=== PATIENT | female | born 1970 | race Caucasian/White ===

== ENCOUNTER → 2016-11-01 | Outpatient (CLI) | payer BC ==
--- NOTE | 2016-11-01 09:35 | MM ---
Reason for exam: additional evaluation requested from prior study. Last mammogram was performed 1 year and 1 month ago. History: Family history of breast cancer in maternal aunt at age 50. 2 benign cyst aspirations of the right breast, October 07, 2016. Benign US RT VAD breast biopsy of the right breast, March 22, 2011. Physical Findings: Nurse Summary: A 2 x 2/1.5cm nodule in the right breast upper outer quadrant at 12 o'clock, and a 2 x 3/1 x 1.5cm nodule in the left breast upper outer quadrant at 10 o'clock (nurse ts). MG 3D Diag Mammo W/Cad RACHEAL Bilateral CC and MLO view(s) were taken. Prior study comparison: September 19, 2015, bilateral MG 3d screening mammo w/cad. August 05, 2014, bilateral MG diagnostic mammo w CAD RACHEAL. The breast tissue is extremely dense which could obscure a lesion on mammography. Benign calcifications. There is chronic nodularity bilaterally. These results were verbally communicated with the patient and result sheet given to the patient on 11/01/16. ASSESSMENT: Incomplete: need additional imaging evaluation, BI-RAD 0 RECOMMENDATION: Ultrasound of both breasts. Manage patient on a clinical basis.
--- NOTE | 2016-11-01 09:57 | USB ---
Reason for exam: clinical finding. History: Family history of breast cancer in maternal aunt at age 50. 2 benign cyst aspirations of the right breast, October 07, 2016. Benign US RT VAD breast biopsy of the right breast, March 22, 2011. US Breast BILAT Right breast ultrasound includes all four quadrants, the retroareolar region and axilla. Finding demonstrate a 47 x 17 x 53mm oval, cystic lesion at 7 o'clock, a 7mm cystic lesion at 7 o'clock, and a 13 x 11 x 12mm oval, cystic lesion at BB at 10 o'clock. Left breast ultrasound includes all four quadrants, the retroareolar region and axilla. Finding demonstrate a 42 x 18 x 28mm cystic lesion at 12 o'clock, a 7mm cystic lesion at BB at 1 o'clock and a 25 x 12 x 23mm cystic lesion at 10 o'clock. Multi cystic breasts. Largest bilaterally measured. These results were verbally communicated with the patient and result sheet given to the patient on 11/01/16. ASSESSMENT: Benign, BI-RAD 2 RECOMMENDATION: Routine screening mammogram of both breasts in 1 year. Manage patient on a clinical basis.
== END | disposition home or self-care (01) ==
LOC: RADMAMWWP 08:10
PROVIDERS: ATTEND Surgery
DX: N60.09 Solitary cyst of unspecified breast (principal)
CPT/HCPCS: 76641; G0204; G0279

== ENCOUNTER → 2018-01-23 | Outpatient (CLI) | payer BC ==
--- NOTE | 2018-01-25 11:06 | MM ---
Reason for exam: screening (asymptomatic). Last mammogram was performed 1 year and 3 months ago. History: Family history of breast cancer in maternal aunt at age 50. 2 benign cyst aspirations of the right breast, October 07, 2016. Benign US RT VAD breast biopsy of the right breast, March 22, 2011. Physical Findings: A clinical breast exam by your physician is recommended on an annual basis and results should be correlated with mammographic findings. MG 3D Screening Mammo W/Cad Bilateral CC and MLO view(s) were taken. Prior study comparison: November 01, 2016, bilateral MG 3d diag mammo w/cad RACHEAL. September 19, 2015, bilateral MG 3d screening mammo w/cad. The breast tissue is extremely dense which could obscure a lesion on mammography. Previous mammotome biopsy in the right breast. Two large circumscribed masses redemonstrated on the right and at least one on the left. These have fluctuated in size over time. Benign cysts are suggested. Consider supplementary screening with ultrasound given breast density and chronic underlying masses. ASSESSMENT: Benign, BI-RAD 2 RECOMMENDATION: Routine screening mammogram of both breasts in 1 year.
== END | disposition home or self-care (01) ==
LOC: RADMAMWWP 13:14
PROVIDERS: ATTEND Obstetrics & Gynecology
DX: Z12.31 Encounter for screening mammogram for malignant neoplasm of breast (principal); Z80.3 Family history of malignant neoplasm of breast
CPT/HCPCS: 77063; 77067

== ENCOUNTER → 2019-02-19 | Outpatient (CLI) | payer BC ==
--- NOTE | 2019-02-19 11:50 | MM ---
Reason for exam: additional evaluation requested from prior study. Last mammogram was performed 1 year and 1 month ago. History: Family history of breast cancer in maternal aunt at age 50. Cyst aspiration of the right breast, July 2018. 2 benign cyst aspirations of the right breast, October 07, 2016. Benign US RT VAD breast biopsy of the right breast, March 22, 2011. Physical Findings: Nurse Summary: 2.5cm nodule in the right breast at 12 o'clock, a 1.5cm nodule in the right breast at 8 o'clock, a 1cm nodule in the left breast at 10 o'clock, a 2.5cm nodule in the left breast at 1 o'clock and a 1.5cm nodule in the left breast at 3 o'clock (nurse dw). MG 3D Diag Mammo W/Cad RACHEAL Bilateral CC and MLO view(s) were taken. Prior study comparison: January 23, 2018, bilateral MG 3d screening mammo w/cad. November 01, 2016, bilateral MG 3d diag mammo w/cad RACHEAL. The breast tissue is extremely dense which could obscure a lesion on mammography. There are benign appearing round oval, circumscribed bilateral masses as seen on ultrasound. There additionally however is a 1.8cm areas of architectural distortion of the central outer right breast, inferior on lateral, CC 25/70 and MLO 20/67. These results were verbally communicated with the patient and result sheet given to the patient on 02/19/19. ASSESSMENT: Suspicious, BI-RAD 4 RECOMMENDATION: Stereotactic core biopsy of the right breast. (3D)
--- NOTE | 2019-02-19 11:55 | USB ---
Reason for exam: additional evaluation requested from prior study. History: Family history of breast cancer in maternal aunt at age 50. Cyst aspiration of the right breast, July 2018. 2 benign cyst aspirations of the right breast, October 07, 2016. Benign US RT VAD breast biopsy of the right breast, March 22, 2011. US Breast BILAT Right complete breast ultrasound includes all four quadrants, the retroareolar region and axilla. Finding demonstrates a 1.4 x 0.8 x 1.0cm oval, cystic lesion at 8 o'clock, a 0.5 x 0.5 x 0.6cm oval, cystic lesion at 10 o'clock, a 0.7 x 0.8 x 0.9cm oval, cystic lesion at 10 o'clock and a 1.8 x 1.2 x 1.9cm oval, cystic lesion at 10 o'clock. Benign. Left complete breast ultrasound includes all four quadrants, the retroareolar region and axilla. Finding demonstrates a 2.3 x 1.5 x 2.0cm oval, mixed lesion at 12 o'clock, 6 month follow up ultrasound recommended and a 2.6 x 1.7 x 1.7cm oval, cystic lesion at 12 o'clock, a 1.3 x 0.6 x 1.1cm oval, questionable solid lesion versus lobe at 10 o'clock, 6 month follow up recommended. Very dense tissue throughout. These results were verbally communicated with the patient and result sheet given to the patient on 02/19/19. ASSESSMENT: Suspicious, BI-RAD 4 RECOMMENDATION: Stereotactic core biopsy of the right breast. (3D) Ultrasound of the left breast in 6 months. (upper inner quadrant) Called Dr. Blankenship's office with mammographic findings. PRELIMINARY REPORT CALLED AND FAXED TO DR. BLANKENSHIP ON 02/19/19.
== END | disposition home or self-care (01) ==
LOC: RADMAMWWP 09:22
PROVIDERS: ATTEND Obstetrics & Gynecology
DX: N60.01 Solitary cyst of right breast (principal); N60.02 Solitary cyst of left breast; R92.8 Other abnormal and inconclusive findings on diagnostic imaging of breast
CPT/HCPCS: 77062; 77066

== ENCOUNTER 2019-06-15 11:34 | Day surgery (SDC) | payer BC ==
[2019-06-13 10:24] VITALS: BMI 23.0
[~2019-06-15 11:34] MED LIST: DEXAMETHASONE SOD PHOSPHATE 10 MG/ML 1 ML VIAL IV ONE; LACTATED RINGERS 1,000 ML IV SCH; LIDOCAINE 1% 20 ML VIAL (10MG/ML) FOR IV START INTRADERMA PRN; ONDANSETRON 4 MG/2 ML VIAL IVP ONE; SCOPOLAMINE 1.5MG/72HR PATCH TRANSDERM ONE
[2019-06-15 13:28] VITALS: TEMP 99
[2019-06-15] MEDS ORDERED: LIDOCAINE 1% INJ 10MG/ML (20 ML MDV) ONE (13:31)
[2019-06-15] MEDS ORDERED: PROPOFOL 10 MG/ML 20 ML VIAL IV ONE (13:31)
--- NOTE | 2019-06-15 13:52 | P.PCN ---
Date of Procedure: 06/15/19 Procedure(s) Performed: BRIEF HISTORY: Patient is a 49-year-old pleasant white female scheduled for an elective colonoscopy as a part of screening for colorectal neoplasia. PROCEDURE PERFORMED: Colonoscopy with snare polypectomy. PREOPERATIVE DIAGNOSIS: Screening for colon cancer. IV sedation per Anesthesia. PROCEDURE: After informed consent was obtained, the patient, was brought into the endoscopy unit. IV sedation was administered by Anesthesia under continuous monitoring. Digital rectal examination was normal. Initially the Olympus CF-160 flexible video colonoscope was then inserted in the rectum, gradually advanced into the cecum without any difficulty. Careful examination was performed as the scope was gradually being withdrawn. Ileocecal valve and the appendiceal orifice were visualized and appeared normal. Prep was excellent. Mucosa of the cecum, ascending colon, transverse colon, descending colon,was normal. The sigmoid colon there was a 7-8 mm polyp that was removed by snare polypectomy rest of the sigmoid colon, and rectum appeared normal. Retroflexion was performed in the rectum and no lesions were seen. The patient tolerated the procedure well. IMPRESSION: 7 mm sigmpoid colon polyp s/p snare polypectomy Rest of the colon normal. RECOMMENDATIONS: Findings of this examination were discussed with the patient well as her family. She was advised to follow with the biopsy results. If the biopsy shows an adenoma she can have a repeat colonoscopy in 5 years.
[2019-06-15 13:55] VITALS: RESP 16
[2019-06-15 14:17] VITALS: BP 125/79; PULSE 61
== END 2019-06-15 14:29 | disposition home or self-care (01) ==
LOC: ORWHC2ENDO 11:34
PROVIDERS: ATTEND Internal Medicine Gastroenterology
DX: Z12.11 Encounter for screening for malignant neoplasm of colon (principal); D12.5 Benign neoplasm of sigmoid colon
CPT/HCPCS: 81025; 88305; 45385; J2001; J2704

== ENCOUNTER → 2020-06-27 | Outpatient (CLI) | payer BC ==
[2020-06-27 10:49] LABS: Basophils % (A) 1 %; Eosinophils # (A) 0.3 k/uL (0-0.7); Eosinophils % (A) 9 %; HCT 41.8 % (34.0-46.0); HGB 13.8 gm/dL (11.4-16.0); Lymphocytes % (A) 28 %; MCH 29.4 pg (25.0-35.0); MCHC 32.9 g/dL (31.0-37.0); MCV 89.2 fL (80.0-100.0); Mean Platelet Volume 8.5; Monocytes # (A) 0.3 k/uL (0-1.0); Monocytes % (A) 7 %; Neutrophils # (A) 1.8 k/uL (1.3-7.7); Neutrophils % (A) 52 %; Platelet Count 191 k/uL (150-450); RBC 4.69 m/uL (3.80-5.40); WBC 3.5 k/uL (3.8-10.6)
== END | disposition home or self-care (01) ==
LOC: LABPAT 09:59
PROVIDERS: ATTEND Obstetrics & Gynecology
DX: Z01.818 Encounter for other preprocedural examination (principal); N84.0 Polyp of corpus uteri
CPT/HCPCS: 85025

== ENCOUNTER → 2020-06-27 | Outpatient (CLI) | payer BC ==
[2020-06-27 15:49] LABS: African American GFR (CKD) 85.8 (60.0-200.0); Albumin 4.6 g/dL (3.80-4.90); Anion Gap 6.6 mmol/L (4.00-12.00); BUN/Creat Ratio 13.33 Ratio (12.00-20.00); Calcium 8.8 mg/dL (8.7-10.3); Carbon Dioxide 26.4 mmol/L (21.6-31.8); Chol/HDL Ratio 3.59; Globulin 2.3 g/dL (1.6-3.3); Potassium 4.2 mmol/L (3.5-5.5); Total Bilirubin 0.6 mg/dL (0.3-1.2); Total Protein 6.9 g/dL (6.2-8.2)
[2020-06-27 19:03] LABS: Hemoglobin A1C 5.4 % (4.0-6.0)
== END | disposition home or self-care (01) ==
LOC: LABWHC1 10:01
PROVIDERS: ATTEND Family Medicine
DX: Z00.00 Encounter for general adult medical examination without abnormal findings (principal)
CPT/HCPCS: 36415; 80053; 80061; 83036; 84443

== ENCOUNTER 2020-07-07 09:19 | Day surgery (SDC) | payer BC ==
--- NOTE | 2020-07-01 17:05 | HP ---
HISTORY AND PHYSICAL DATE OF SURGERY: 07/07/2020 This is a 50-year-old female who presents with a history of sonographic evidence of two endometrial polyps as well as an endocervical polyp. In addition, there is asymmetric thickening of the endometrial cavity. This was done in response to abnormal uterine bleeding. I have discussed with the patient the recommendation of hysteroscopy, D and C, and polypectomies as an outpatient. Information has all been reviewed, including risks and benefits of procedure and anesthesia. All questions answered. PAST MEDICAL HISTORY: Significant for benign heart murmur, ulcer disease, and history of abnormal Pap smear in the past. PAST SURGICAL HISTORY: Breast biopsies, cholecystectomy, colposcopy, cryotherapy, foot surgery, partial thyroidectomy, sinus surgery, and stereotactic core biopsy of the breast. CURRENT MEDICATIONS: Eye drops daily. ALLERGIES: ALLERGIES include AUGMENTIN, to which reports diarrhea. FAMILY HISTORY: Significant for CVA, breast cysts, breast cancer, GERD, stroke. SUPERINTENDENT MAINTENANCE HISTORY: The patient is 1 para 1 with one spontaneous vaginal delivery in 1996, a 6- pound 11-ounce male infant. SOCIAL HISTORY: Patient is an rn production. She is a nonsmoker. She is . She denies alcohol or drug use. PHYSICAL EXAMINATION: Patient is 5 feet 4 inches, 125 pounds, BMI 21, blood pressure 130/76. The general physical exam is within normal limits. HEENT exam reveals no thyromegaly, no cervical lymphadenopathy. CHEST: Clear to auscultation in all morrow anteriorly and posteriorly. Cardiac exam reveals regular rate and rhythm with no murmur, click or rub. Breasts are bilaterally symmetric. No nipple discharge, axillary adenopathy, discernible lesions or masses. ABDOMEN: Soft and nontender. Active bowel sounds. No CVA tenderness. On pelvic examination, cervix is multiparous, uterus is small, anteverted, anteflexed. Adnexa are negative bilaterally. IMPRESSION: Abnormal uterine bleeding with sonographic evidence of multiple endometrial as well as endocervical polyps. Presenting for hysteroscopy, polypectomy, dilatation and curettage. PLAN: We will proceed with surgery as above. All questions answered. The ACOG pamphlet on this procedure has been given to the patient, has been reviewed and questions answered. She understands the risk of bleeding, infection, perforation or damage to bowel, bladder, ureters or indeed any pelvic or abdominal organs. This surgery is scheduled for 07/07/2020 at [facility]. MMODL / IJN: [id number] /
[2020-07-04 09:18] VITALS: BMI 21.4
[~2020-07-07 09:19] MED LIST changes: -DEXAMETHASONE SOD PHOSPHATE 10 MG/ML 1 ML VIAL IV ONE; +DEXAMETHASONE SOD PHOSPHATE 4 MG/ML 1 ML VIAL IV ONE; +HYDROmorphone 0.5 MG/0.5 ML SYRINGE IVP PRN; +LIDOCAINE 1% (10MG/ML) FOR IV START INTRADERMA PRN; -LIDOCAINE 1% 20 ML VIAL (10MG/ML) FOR IV START INTRADERMA PRN; +Pre Op ABX Message 1 EACH MISC MISCELLANE ONE; -SCOPOLAMINE 1.5MG/72HR PATCH TRANSDERM ONE
[2020-07-07] MEDS ORDERED: LIDOCAINE 1% INJ 10MG/ML (20 ML MDV) ONE (10:36)
[2020-07-07] MEDS ORDERED: PROPOFOL 10 MG/ML 20 ML VIAL IV ONE (10:36)
[2020-07-07] MEDS ORDERED: KETOROLAC 15 MG/ML 1 ML VIAL ONE (10:36)
[2020-07-07] MEDS ORDERED: fentaNYL (PF) 50 MCG/ML 2 ML AMP ONE (10:36)
[2020-07-07] MEDS ORDERED: MIDAZOLAM 2 MG/2 ML VIAL ONE (10:36)
--- NOTE | 2020-07-07 11:14 | P.OP ---
Date of Procedure: 07/07/20 Preoperative Diagnosis: Endometrial and endocervical polyps Postoperative Diagnosis: Same Procedure(s) Performed: Hysteroscopy, polypectomy, D&C Anesthesia: LEWISA Surgeon: Lyubov Blankenship Estimated Blood Loss (ml): 20 IV fluids (ml): 400 Urine output (ml): 50 Pathology: other (Endometrial and endocervical curettings and polyps) Description of Procedure: Patient is brought to the operating room where a general anesthetic is administered without difficulty. She's placed in the dorsal lithotomy position. The appropriate timeout is performed to assure proper patient and procedural identification. Antibiotics are not deemed necessary. Urine hCG is negative. Examination under anesthesia reveals a small anteverted anteflexed uterus. Negative adnexa. Bladder is drained for approximately 50 mL of clear yellow urine. Weighted speculum was placed into the vagina and the anterior lip of the cervix is gently grasped with a double-tooth tenaculum. Uterus sounds to a depth of 9 cm in the anteverted position. The cervix is gently and systematically dilated using Hanks dilators. The hysteroscope was then placed and the cavity is distended with sterile saline. Small endometrial polyps are identified, no obvious fibroids or septa. Hysteroscope was removed. Medium sharp curette is used in the entire cavity is curettaged. Polyp forceps are also introduced and small polypoid tissue is removed and sent to pathology. Hysteroscope was once again introduced and the cavity and cervix both appear to be negative. All sponge needle and enhancement counts are correct. Cervical lip is clean and dry. Toradol is given prior to leaving the operative suite. Patient is brought to the recovery room in very good condition with stable vital signs including blood pressure 98/52, pulse 57, 97% O2 saturation. Patient will follow-up with me in the office in 2 weeks.
[2020-07-07 11:29] VITALS: RESP 16; TEMP 97.9
[2020-07-07 12:27] VITALS: BP 125/64; PULSE 59
== END 2020-07-07 12:49 | disposition home or self-care (01) ==
LOC: OR 09:19
PROVIDERS: ATTEND Obstetrics & Gynecology
DX: N84.0 Polyp of corpus uteri (principal); N84.1 Polyp of cervix uteri; R01.1 Cardiac murmur, unspecified; Z90.49 Acquired absence of other specified parts of digestive tract; Z98.890 Other specified postprocedural states; E89.0 Postprocedural hypothyroidism; Z82.3 Family history of stroke; Z80.3 Family history of malignant neoplasm of breast; Z83.79 Family history of other diseases of the digestive system; Z79.899 Other long term (current) drug therapy; Z88.0 Allergy status to penicillin
CPT/HCPCS: 81025; 88305; 58558; J2250; J1100; J2405; J2001; J3010; J1885; J2704

== ENCOUNTER → 2021-10-06 | Outpatient (CLI) | payer BC ==
[2021-10-06 14:59] LABS: HCT 38.8 % (37.2-46.3); HGB 11.5 g/dL (12.0-15.0); MCH 24.9 pg (27.0-32.0); MCHC 29.6 g/dL (32.0-37.0); Mean Platelet Volume 12.1 fL (9.5-12.2); NRBC Per 100 WBC 0 /100 WBCS (0.0-0.0); Platelet Count 249 X 10*3/uL (140-440); RBC 4.62 X 10*6/uL (4.10-5.20); RDW 16.3 % (11.5-14.5); WBC 3.47 X 10*3/uL (4.50-10.00)
[2021-10-06 15:52] LABS: African American GFR (CKD) 98.2 (60.0-200.0); Anion Gap 15.1 mmol/L (10.00-18.00); Blood Urea Nitrogen 9.6 mg/dL (9.0-27.0); Carbon Dioxide 20.9 mmol/L (20.0-27.5); Magnesium 2.3 mg/dL (1.5-2.4); Non-African American GFR(CKD) 84.8 (60.0-200.0); Potassium 4.2 mmol/L (3.5-5.5)
== END | disposition home or self-care (01) ==
LOC: LABPAT 07:58
PROVIDERS: ATTEND Obstetrics & Gynecology
DX: Z01.812 Encounter for preprocedural laboratory examination (principal); N93.9 Abnormal uterine and vaginal bleeding, unspecified; D25.9 Leiomyoma of uterus, unspecified
CPT/HCPCS: 80051; 82565; 82947; 83735; 84520; 85027; 87086

== ENCOUNTER → 2021-10-06 | Outpatient (CLI) | payer BC ==
[2021-10-06 15:53] LABS: Chol/HDL Ratio 3.48 Ratio; LDL Cholesterol,Calculated 139.6 mg/dL (0.0-131.0)
== END | disposition home or self-care (01) ==
LOC: LABWHC1 08:00
PROVIDERS: ATTEND Family Medicine
DX: Z00.00 Encounter for general adult medical examination without abnormal findings (principal)
CPT/HCPCS: 36415; 80061; 83036

== ENCOUNTER 2021-10-13 05:47 | Day surgery (SDC) | payer BC ==
[2021-10-08 16:35] VITALS: BMI 22.1
[2021-10-13] MEDS ORDERED: ONDANSETRON 4 MG/2 ML VIAL IVP ONE (05:58)
[2021-10-13] MEDS ORDERED: DEXAMETHASONE SOD PHOSPHATE 4 MG/ML 1 ML VIAL IV ONE (05:58)
[2021-10-13] MEDS ORDERED: LIDOCAINE 1% (10MG/ML) FOR IV START INTRADERMA PRN (05:58)
[2021-10-13] MEDS ORDERED: SCOPOLAMINE 1 MG/72 HR PATCH TRANSDERM ONE (05:58)
[2021-10-13] MEDS: LACTATED RINGERS 1,000 ML IV SCH ×2 (06:41→10:17)
[2021-10-13] MEDS ORDERED: HYDROmorphone 0.5 MG/0.5 ML SYRINGE IVP PRN (07:00)
[2021-10-13] MEDS ORDERED: GLYCOPYRROLATE 0.2 MG/ML 2 ML VIAL ONE (07:27)
[2021-10-13] MEDS ORDERED: fentaNYL (PF) 50 MCG/ML 2 ML AMP ONE (07:27)
[2021-10-13] MEDS ORDERED: MORPHINE SULFATE (PF) 0.3 MG/0.3 ML SYR ONE (07:27)
[2021-10-13] MEDS ORDERED: ROCURONIUM 10 MG/ML (5 ML VIAL) IV ONE (07:27)
[2021-10-13] MEDS ORDERED: MIDAZOLAM 2 MG/2 ML VIAL ONE (07:27)
[2021-10-13] MEDS ORDERED: SUCCINYLCHOLINE CHLORIDE 100 MG/5 ML SYR IV ONE (07:27)
[2021-10-13] MEDS ORDERED: LIDOCAINE 2% INJ 20 MG/ML (2 ML VIAL) ONE (07:27)
[2021-10-13] MEDS ORDERED: PROPOFOL 10 MG/ML 20 ML VIAL IV ONE (07:27)
[2021-10-13] MEDS ORDERED: NEOSTIGMINE 1 MG/ML 10 ML VIAL ONE (07:27)
[2021-10-13] MEDS ORDERED: VASOPRESSIN 20 UNIT/ML 1 ML VIAL SQ ONE (08:04)
[2021-10-13] MEDS ORDERED: IBUPROFEN 600 MG TAB PO PRN (09:44)
[2021-10-13] MEDS ORDERED: SIMETHICONE 80 MG CHEWABLE PO PRN (09:44)
[2021-10-13] MEDS ORDERED: ONDANSETRON 4 MG/2 ML VIAL IVP PRN (09:44)
[2021-10-13] MEDS ORDERED: diphenhydrAMINE 50 MG/ML 1 ML VIAL IVP PRN (09:44)
[2021-10-13] MEDS ORDERED: METOCLOPRAMIDE 5 MG/ML 2 ML VIAL IVP PRN (09:44)
[2021-10-13] MEDS ORDERED: ZOLPIDEM 5 MG TAB PO PRN (09:44)
--- NOTE | 2021-10-13 09:44 | P.OP ---
Date of Procedure: 10/13/21 Preoperative Diagnosis: Menorrhagia, fibroid uterus, anemia Postoperative Diagnosis: Same, normal-appearing ovaries bilaterally. Procedure(s) Performed: Vaginal hysterectomy Anesthesia: allison DAVIS Surgeon: Lyubov Blankenship Field Sales Executive #1: Charmaine Haider Estimated Blood Loss (ml): 100 IV fluids (ml): 600 Urine output (ml): 370 Pathology: other (Cervix and uterus) Condition: stable Disposition: PACU Operative Findings: Normal-appearing ovaries bilaterally. No obvious cystocele or rectocele. Description of Procedure: Patient is brought to the operative suite where a spinal with Duramorph is administered, followed by a general anesthetic. She's placed in the dorsal lithotomy position. Antibiotics given. Urine hCG negative. The appropriate timeout is performed to assure proper patient and procedural identification. The abdomen is prepped and draped in usual sterile fashion. Weighted speculum was placed into the vagina. Bladder is drained for approximately 300 mL of clear yellow urine. The anterior lip of the cervix is grasped with a double- tooth tenaculum. The cervix is injected circumferentially with a dilute Pitressin solution. A skull valley blade scalpel is used to incise the mucosa circumferentially with a V positioning at 6:00. The peritoneum is entered at 6:00 with Metzenbaum scissors, suture tied with 2-0 Vicryl suture. The large billed speculum is then placed into the peritoneal cavity. A sponge rolled finger is used to sweep the mucosa at all times well from the operative field to avoid bladder and/or ureteral injury. Chichi clamp is used on the right uterosacral cardinal ligament, it is clamped, cut, suture-ligated and held with a hemostat. This is performed with 0 Vicryl suture which is used now for the entire remaining portion of the procedure. The same procedure is carried out contralaterally on the left uterosacral cardinal ligament, again held with a hemostat. Several pedicles are now taken on either side to clamped cut and suture ligate the vasculature which is abundant bilaterally. 2 additional pedicles are taken superior to the vasculature. Hemostasis remained excellent. Peritoneum is now entered at 6:00 with a Metzenbaum scissor. The uterus is "walked out" posteriorly. Chichi clamps are used across the final pedicles, the cervix and uterus are removed and sent to pathology. The pedicles are tied with 0 Vicryl suture in a Chichi clamp, flashed, and retied again for excellent hemostasis. A sponge stick is used, ovaries appear normal bilaterally, clean and dry, left in situ per the patient's wishes. The large billed speculum is then removed to the shallow speculum. The 2-0 Vicryl suture at 6:00 is brought around in a pursestring fashion to close the peritoneum. The uterosacral ligaments are brought across to incorporate the opposite ligament as well as vaginal mucosa. 2 additional [id number] sutures are used inferior to this, and to superior to close the vaginal cuff. Hemostasis is excellent. The vagina is packed with a 1 inch iodophor gauze with basic tracing. Cadet catheter confirms clear urine. All sponge needle and enhancement counts are correct. Patient is brought back to the recovery room in very good condition with stable vital signs including blood pressure 125/65, pulse 67. Complications, none
[2021-10-13] MEDS: SENNOSIDES-DOCUSATE SODIUM 1 EACH TAB PO SCH (19:57)
--- NOTE | 2021-10-14 08:03 | P.DS ---
Providers Date of admission: 10/13/21 Expected date of discharge: 10/14/21 Attending physician: Lyubov Blankenship Primary care physician: [facility] Hospital Course: This is a 51-year-old female who presented with menorrhagia, secondary anemia, and fibroid uterus. After thorough consultation she elected to proceed with vaginal hysterectomy. All risks and benefits reviewed. Please see dictated history and physical for details. Yesterday under my care, with a spinal with Duramorph and general anesthetic, she underwent a vaginal hysterectomy. Surgery was unremarkable. Ovaries appeared normal and were left in situ per her wishes. Vaginal packing and Cadet catheter were placed. Please see dictated operative note for details. This morning the patient is doing well. Vaginal packing and Cadet catheter had been removed. She is passing flatus. She denies any pain. Scant vaginal drainage. Vital signs are stable and she has remained afebrile. Abdomen is soft and nontender, active bowel sounds. No CVA tenderness. Extremities are negative. Patient is judged to be in good condition for discharge home. She will follow-up with me in the office in 2 weeks. I have reminded her no intercourse, tampons or douching. She will use [id number] Advil or Aleve, or Motrin as needed for pain. She will call with any fevers shakes or chills, foul smelling or bloody vaginal drainage, with any pain not alleviated by [id number]-[id number] products, or indeed with any concerns. Assessment: Doing well postoperative day #1 Patient Condition at Discharge: Good Plan - Discharge Summary Discharge Rx Participant: No New Discharge Prescriptions: No Action L.acidoph,Paracasei, B.lactis [Probiotic] 1 each PO DAILY Discharge Medication List L.acidoph,Paracasei, B.lactis [Probiotic] 1 each PO DAILY 10/08/21 [History] Follow up Appointment(s)/Referral(s): Lyubov Blankenship MD [STAFF PHYSICIAN] - 2 Weeks Discharge Disposition: HOME SELF-CARE
[2021-10-14] MEDS: SENNOSIDES-DOCUSATE SODIUM 1 EACH TAB PO SCH (08:14)
[2021-10-14 08:18] VITALS: BP 135/87; PULSE 87; RESP 16; TEMP 98.1
--- NOTE | 2021-10-14 09:24 | P.PN ---
Progress Note - Text Progress Note Date: 10/14/21 Postoperative day 1 status post vaginal hysterectomy under general endotracheal anesthesia, and intrathecal morphine given for postoperative analgesia, patient doing well, there is no anesthesia related complications, Patient had no headache, vital signs stable , Assessment and plan= postop day 1 status vaginal hysterectomy, doing well there is no anesthesia related complication.
[2021-10-14] MEDS ORDERED: ACETAMINOPHEN TAB 325 MG TAB PO PRN (09:46)
== END 2021-10-14 14:15 | disposition home or self-care (01) ==
LOC: OR 05:47 → 4FBP 08:52 → OR 10-14 14:15
PROVIDERS: ATTEND Obstetrics & Gynecology
DX: N92.0 Excessive and frequent menstruation with regular cycle (principal); D25.1 Intramural leiomyoma of uterus; N88.8 Other specified noninflammatory disorders of cervix uteri; N84.1 Polyp of cervix uteri; D64.9 Anemia, unspecified; R01.1 Cardiac murmur, unspecified; E89.0 Postprocedural hypothyroidism; Z98.890 Other specified postprocedural states; Z90.49 Acquired absence of other specified parts of digestive tract; Z88.0 Allergy status to penicillin; Z82.3 Family history of stroke; Z80.3 Family history of malignant neoplasm of breast; Z83.79 Family history of other diseases of the digestive system
CPT/HCPCS: 81025; 86900; 86901; 86850; 88307; 58260; J2250; J1100; J2710; J0690; J2405; J2274; J3010; J0330; J2704; J2001

== ENCOUNTER → 2023-11-04 | Outpatient (CLI) | payer BC ==
--- NOTE | 2023-11-04 17:01 | CA ---
Transthoracic Echo Report Name: Antonia Donahue Age: 53 Gender: F : 1970 Exam Date: 11/04/2023 16:01 Exam Location: [place] [facility] Ht (in): 63 Wt (lb): 129 Ordering Physician: Marc Kelley MD Attending/Referring Phys: Warren COSTELLO First Line Production Supervisor Socorro Wakefield, JESIKA Procedure CPT: Indications: R01.1 cardiac murmur Cardiac Hx: Technical Quality: Good Contrast 1: Total Dose (mL): Contrast 2: Total Dose (mL): MEASUREMENTS (Male / Female) Normal Values 2D ECHO LV Diastolic Diameter PLAX 4.3 cm 4.2 - 5.9 / 3.9 - 5.3 cm LV Systolic Diameter PLAX 2.9 cm IVS Diastolic Thickness 0.8 cm 0.6 - 1.0 / 0.6 - 0.9 cm LVPW Diastolic Thickness 0.8 cm 0.6 - 1.0 / 0.6 - 0.9 cm LV Relative Wall Thickness 0.4 RV Internal Dim ED PLAX 1.4 cm LA Systolic Diameter LX 3.3 cm 3.0 - 4.0 / 2.7 - 3.8 cm LV Diastolic Volume MOD BP 53.2 cm??? 67 - 155 / 56 - 104 cm??? LV Systolic Volume MOD BP 18.0 cm??? 22 - 58 / 19 - 49 cm??? LV Ejection Fraction MOD BP 66.1 % >= 55 % LV Cardiac Index MOD BP 1630.6 cm???/min???m??? LV Diastolic Volume MOD 4C 63.2 cm??? LV Systolic Volume MOD 4C 19.2 cm??? LV Ejection Fraction MOD 4C 69.6 % LV Cardiac Index MOD 4C 2036.9 cm???/min???m??? LV Diastolic Length 4C 6.4 cm LV Systolic Length 4C 5.6 cm LV Diastolic Volume MOD 2C 45.6 cm??? LV Systolic Volume MOD 2C 16.7 cm??? LV Ejection Fraction MOD 2C 63.3 % LV Cardiac Index MOD 2C 1336.5 cm???/min???m??? LV Diastolic Length 2C 6.2 cm LV Systolic Length 2C 5.5 cm LA Volume 43.5 cm??? 18 - 58 / 22 - 52 cm??? LA Volume Index 26.9 cm???/m??? 16 - 28 cm???/m??? M-MODE Aortic Root Diameter MM 2.2 cm LA Systolic Diameter MM 2.3 cm LA Ao Ratio MM 1.1 AV Cusp Separation MM 1.5 cm DOPPLER AV Peak Velocity 152.8 cm/s AV Peak Gradient 9.3 mmHg AV Mean Velocity 112.1 cm/s AV Mean Gradient 5.5 mmHg AV Velocity Time Integral 38.8 cm MV Area PHT 3.9 cm??? Mitral E Point Velocity 85.6 cm/s Mitral A Point Velocity 67.9 cm/s Mitral E to A Ratio 1.3 MV Deceleration Time 193.9 ms TR Peak Velocity 246.2 cm/s TR Peak Gradient 24.2 mmHg Right Ventricular Systolic Press 28.7 mmHg FINDINGS Left Ventricle Left ventricular ejection fraction is estimated at 55-60%. Left ventricular cavity size normal. Left ventricular wall thickness normal. Normal left ventricular wall motion. No obvious regional wall motion abnormalities. Normal left ventricular diastolic filling pattern. Right Ventricle Normal right ventricular size and function. Right ventricular systolic pressure within normal limits. Right Atrium Normal right atrial size. Left Atrium Left atrial size at the upper limits of normal. Mitral Valve Structurally normal mitral valve. Mild mitral regurgitation. No mitral stenosis. Aortic Valve Trileaflet aortic valve. No aortic stenosis. No aortic regurgitation. Mild thickening of the aortic valve cusps. Tricuspid Valve Structurally normal tricuspid valve. Mild tricuspid regurgitation. Pulmonic Valve Pulmonic valve not well visualized. Trace pulmonic regurgitation. No pulmonic stenosis. Pericardium No pericardial or pleural effusion. Aorta Normal size aortic root and proximal ascending aorta. CONCLUSIONS Normal LV size, wall thickness and systolic function. Estimated LVEF 60-65%. No obvious regional wall motion abnormality. No significant diastolic dysfunction. No significant valvular dysfunction. Overall normal chamber sizes. No pericardial effusion. No prior echo to compare with. Previewed by: Dr Paul Wheeler (Electronically Signed) Final Date: 04 November 2023 17:00
== END | disposition home or self-care (01) ==
LOC: RADECHMAIN 15:54
PROVIDERS: ATTEND Family Medicine
DX: R01.1 Cardiac murmur, unspecified (principal)
CPT/HCPCS: 93306